=== PATIENT | female | born 1955 | race Two or more races ===

== ENCOUNTER 2020-03-22 00:22 | Inpatient (IN) | payer MEDICARE, OTHER ==
[~2020-03-22] VITALS: Ht 154.9 cm; Wt 68.0 kg
--- NOTE | 2020-03-22 00:50 | NUR ---
PATIENT WAS MSE BY DR CARY IN ROOM 01B.
[2020-03-22] MEDS ORDERED: ISOS30TA6 PO (00:54)
[2020-03-22] MEDS ORDERED: METF-442 PO (00:54)
[2020-03-22] MEDS ORDERED: ATOR20TA27 PO (00:54)
[2020-03-22] MEDS ORDERED: [UNRECOGNIZED DRUG - CODE] PO (00:54)
[2020-03-22] MEDS ORDERED: ACET-2605 PO (00:54)
[2020-03-22] MEDS ORDERED: OXYB5TAB29 PO (00:54)
[2020-03-22] MEDS ORDERED: OMEP40CA13 PO (00:54)
[2020-03-22] MEDS ORDERED: BENZ-38 PO (00:54)
[2020-03-22] MEDS ORDERED: PROP20TA19 PO (00:54)
[2020-03-22] MEDS ORDERED: ONDA8TAB9 PO (00:54)
[2020-03-22] MEDS ORDERED: CHOL50004 PO (00:54)
[2020-03-22 01:11] LABS: BASOPHILS # (AUTO) 0.1 K/uL (0.0-8.0); BASOPHILS % (AUTO) 1.5 % (0.0-2.0); EOSINOPHILS # (AUTO) 0.1 K/uL (0.0-0.7); EOSINOPHILS % (AUTO) 0.7 % (0.0-7.0); HEMATOCRIT 39.6 % (31.2-41.9); HEMOGLOBIN 13.3 g/dL (10.9-14.3); LYMPHOCYTES # (AUTO) 1.9 K/uL (20.0-40.0); LYMPHOCYTES % (AUTO) 23.9 % (20.5-51.5); MEAN CORPUSCULAR HEMOGLOBIN 30.4 uug (24.7-32.8); MEAN CORPUSCULAR HGB CONC 34 g/dL (32.3-35.6); MEAN CORPUSCULAR VOLUME 90.6 fL (75.5-95.3); MONOCYTES # (AUTO) 0.7 K/uL (2.0-10.0); MONOCYTES % (AUTO) 8.7 % (0.0-11.0); NEUTROPHILS # (AUTO) 5.1 K/uL (1.8-8.9); NEUTROPHILS % (AUTO) 65.2 % (38.5-71.5); PLATELET COUNT (AUTO) 405 K/uL (179-408); RED BLOOD CELL COUNT(AUTO) 4.37 MIL/uL (3.63-4.92); WHITE BLOOD COUNT (AUTO) 7.8 K/uL (3.8-11.8)
[2020-03-22 01:20] LABS: CREATININE 0.7 mg/dL (0.6-1.3); POTASSIUM 3.5 mmol/L (3.5-5.1)
[2020-03-22 01:37] LABS: BILIRUBIN,TOTAL 0.5 mg/dL (0.2-1.0); TOTAL PROTEIN, SERUM 7.5 g/dL (6.4-8.2)
[2020-03-22] MEDS ORDERED: PANTOPRAZOLE SODIUM 40 MG VIAL IV ONE (02:15)
[2020-03-22] MEDS ORDERED: PANTOPRAZOLE SODIUM 40 MG VIAL ONE (03:11)
--- NOTE | 2020-03-22 03:51 | NUR ---
Pt. admitted to TELE , under care of Dr. RACHEL KRISHNAMURTHY Belongs List completed
[2020-03-22] MEDS ORDERED: MAGNESIUM HYDROXIDE 30 ML LIQUID UDC PO PRN (04:30)
[2020-03-22] MEDS ORDERED: NITROGLYCERIN 0.4 MG/TAB BOTTLE SL PRN (04:30)
[2020-03-22] MEDS ORDERED: ONDANSETRON 4 MG/2 ML VIAL IV PRN (04:30)
[2020-03-22] MEDS ORDERED: ACETAMINOPHEN 325 MG TABLET PO PRN (04:30)
[2020-03-22] MEDS ORDERED: MORPHINE SULFATE 2 MG/1 ML DISP.SYRIN IV PRN (04:30)
[2020-03-22] MEDS ORDERED: HYDROCODONE/APAP 5-325MG TABLET PO PRN (04:30)
[2020-03-22 04:58] LABS: THYROID STIMULATING HORMONE 2.33 mIU/mL (0.358-3.740)
[2020-03-22 05:30] VITALS: BP 150/83
[2020-03-22] MEDS: METFORMIN HCL 500 MG TABLET PO SCH ×2 (08:00→17:40)
[2020-03-22] MEDS ORDERED: SWABABLE VALVE TRANSFER SET EA MC ONE (08:21)
[2020-03-22] MEDS ORDERED: IOHEXOL 350 100 ML INFUS..BTL ONE (08:21)
[2020-03-22] MEDS ORDERED: IV NORMAL SALINE 250 ML IV ONE (08:21)
[2020-03-22] MEDS ORDERED: METFORMIN HCL 850 MG TABLET PO SCH (09:00)
[2020-03-22] MEDS ORDERED: ASPIRIN EC 81 MG TABLET.DR PO SCH (09:00)
[2020-03-22] MEDS ORDERED: ISOSORBIDE MONONITRATE 30 MG TAB.SR.24H PO SCH (09:00)
[2020-03-22] MEDS ORDERED: OXYBUTYNIN XL 5 MG TABSR PO SCH (09:00)
[2020-03-22] MEDS ORDERED: LOSARTAN POTASSIUM 25 MG TABLET PO SCH (09:00)
[2020-03-22 11:37] VITALS: BP 139/72
[2020-03-22] MEDS ORDERED: INSULIN REGULAR, HUMAN 300 UNIT/3 ML VIAL SQ PRN (12:15)
[2020-03-22] MEDS ORDERED: DEXTROSE 50% 50 ML DISP.SYRIN IV PRN (12:15)
[2020-03-22] MEDS: BLOOD SUGAR DIAGNOSTIC 1 EACH STRIP VI SCH ×2 (12:36→16:29)
[2020-03-22] MEDS: BENZONATATE 100 MG CAPSULE PO SCH ×3 (13:00→17:30)
[2020-03-22] MEDS: PROPRANOLOL HCL 20 MG TABLET PO SCH ×2 (14:05→17:31)
[2020-03-22 16:00] VITALS: BP 120/71
[2020-03-22] MEDS ORDERED: LOSA25TA3 PO (17:24)
[2020-03-22] MEDS ORDERED: METF-440 PO (17:24)
[2020-03-22] MEDS ORDERED: ASPI-618 PO (17:24)
[2020-03-22] MEDS ORDERED: Nitroglycerin Sl SL (17:24)
[2020-03-22] MEDS ORDERED: DOXY100C2 PO (17:26)
[2020-03-22] MEDS ORDERED: DEXA4TAB PO (17:26)
[2020-03-22 17:31] VITALS: BP 120/71
--- NOTE | 2020-03-22 18:45 | NUR ---
Discharge instructions provided to the patient with verbalized understanding. Discharge papers signed by and given to the patient. All belongings brought home with the patient. Patient remains alert, oriented x 4, not in any form of distress. She denies any pain or discomfort. Assisted with her needs. Assisted patient safely to the lobby. Patient picked up by daughter via private car.
[2020-03-22] MEDS ORDERED: ATORVASTATIN 20 MG TABLET PO SCH (21:00)
== END 2020-03-22 18:41 | disposition home or self-care (01) | DRG 177 ==
LOC: ER 00:27 → TELE3 04:32
PROVIDERS: ADMIT Nurse Practitioner Acute Care; ATTEND Nurse Practitioner Acute Care
DX: U07.1 COVID-19 (principal); J12.89 Other viral pneumonia; M94.0 Chondrocostal junction syndrome [Tietze]; E11.9 Type 2 diabetes mellitus without complications; E78.5 Hyperlipidemia, unspecified; Z83.3 Family history of diabetes mellitus; Z86.73 Personal history of transient ischemic attack (TIA), and cerebral infarction without residual deficits; I10 Essential (primary) hypertension; Z79.84 Long term (current) use of oral hypoglycemic drugs; Z88.0 Allergy status to penicillin
CPT/HCPCS: 36415; 70030-TC; 71045; 71275; 83605; 83615; 84443; 85025; 85730; 86140; 87040; 93005; A4663; C9113; G0378; J1815; J7050; Q9967; U0003